=== PATIENT | female | born 1985 | race Caucasian/White ===

== ENCOUNTER 2016-03-18 18:15 | Emergency (ER) | payer OTHER ==
[~2016-03-18] VITALS: Ht 175.3 cm; Wt 64.5 kg
[~2016-03-18 18:15] MED LIST: DOCU-144; ONDA4TAB35; POLY17PO; RIZA10TA21 ODT; TOPI200T4
[2016-03-18 18:42] VITALS: Ht 175.3 cm; Wt 64.5 kg
[2016-03-18] MEDS ORDERED: SOD CHLORIDE 0.9% 1,000 ML IV STA (20:15)
[2016-03-18] MEDS ORDERED: METOCLOPRAMIDE 10 MG INJ IV STA (20:15)
[2016-03-18] MEDS ORDERED: KETOROLAC 30 MG INJ IV STA (20:15)
[2016-03-18] MEDS ORDERED: DIPHENHYDRAMINE 50 MG INJ IV ONE (20:30)
--- NOTE | 2016-03-18 21:32 | ERD ---
ER Documentation Chief Complaint Date/Time DATE: 03/18/16 TIME: 21:29 Chief Complaint headache since december, and neck pain x month; ear muffled; HPI This is a 30-year-old female presenting to the emergency department with a history of chronic migraines since 2006 presenting to the emergency room complaining of a migraine and neck pain since December. Patient states the pain is severe. Patient states that she does have two neurologist that she sees , her last appointment was on March 05 in which she was put on new medication however she does not know the name of the medication. The other medication the patient takes Topamax. Patient has not taken any other medications today. She admits to having photophobia and nausea. Patient also complains of left-sided neck pain, with muffled ear and pain in her left jaw. She denies any chest pain or shortness of breath ROS All systems reviewed and are negative except as per history of present illness. Medications Home Meds Active Scripts Ibuprofen* (Ibuprofen*) 600 Mg Tablet, 600 MG PO Q6H Y for PAIN, #30 TAB Prov:KYLE DELEON PA-C 03/18/16 Cyclobenzaprine Hcl* (Cyclobenzaprine Hcl*) 10 Mg Tablet, 10 MG PO Q8 Y for MUSCLE SPASMS, #10 TAB Prov:KYLE DELEON PA-C 03/18/16 Reported Medications Ondansetron Hcl* (Zofran* ODT) 4 mg -ODT Tab.disper, PRN 06/04/13 Topiramate* (Topiragen*) 200 Mg Tablet, QHS 06/04/13 Rizatriptan Benzoate (Rizatriptan Benzoate) 10 Mg Tablet, ODT 06/04/13 Polyethylene Glycol 3350 (LAXATIVE PEG 3350) 17 Gm Powd.pack, DAILY 06/04/13 Docusate Sodium* (Colace*) 100 Mg Capsule, DAILY 06/04/13 Allergies Allergies: Coded Allergies: iodine (Verified Allergy, Severe, "MY THROAT WILL CLOSE", 06/18/13) latex (Verified Allergy, Severe, 06/18/13) Penicillins (Verified Allergy, Mild, RASH, 06/18/13) PMhx/Soc History of Surgery: Yes (lower back, right leg) Anesthesia Reaction: No Hx Neurological Disorder: No Hx Respiratory Disorders: Yes (asthma) Hx Cardiac Disorders: No Hx Psychiatric Problems: No Hx Miscellaneous Medical Probl: No Hx Alcohol Use: No Hx Substance Use: No Hx Tobacco Use: No Smoking Status: Never smoker Physical Exam Vitals Vital Signs Date Time Temp Pulse Resp B/P Pulse Ox O2 Delivery O2 Flow Rate FiO2 03/18/16 18:42 97.7 96 18 123/67 100 Physical Exam GENERAL: well-developed/well-nourished, in no apparent distress, non-toxic appearing HENT: NC/AT, bilateral tympanic membrane is normal with good cone of light, nares patent, oropharynx clear without exudates Linea alba and tongue ridges were noted in oropharynx EYES: Conjunctiva normal, PERRLA, EOMI, no nystagmus noted NECK: Tender palpation of the left SCM and trapezius muscle .supple, no lymphadenopathy PULM: CTA bilaterally, no rales, rhonchi, or wheezing heard CV: Normal S1S2, RRR, good capillary refill GI: Soft, non-distended, normal bowel sounds, non-tender BACK: No midline tenderness, no masses, No CVAT EXT: No clubbing, cyanosis, or edema NEURO: Alert and orientated to person, place, and time. CN II-IIX intact. Gait and coordination were normal. Hand health care marketing specialist strength were equal and within normal limits SKIN: Intact, normal turgor PSYCH: Normal mood and mentation, patient denied SI Results 24 hrs Current Medications Medications (Trade) Dose Ordered Sig/Haile Route PRN Reason Start Time Stop Time Status Last Admin Dose Admin Sodium Chloride (NS) 1,000 ml @ 1,000 mls/hr Q1H STAT IV 03/18/16 20:15 03/18/16 21:14 DC 03/18/16 21:31 Metoclopramide HCl (Reglan) 10 mg ONCE STAT IV 03/18/16 20:15 03/18/16 20:17 DC 03/18/16 21:31 Ketorolac Tromethamine (Toradol) 30 mg ONCE STAT IV 03/18/16 20:15 03/18/16 20:17 DC 03/18/16 21:33 Diphenhydramine HCl (Benadryl) 50 mg ONCE ONCE IV 03/18/16 20:30 03/18/16 20:31 DC 03/18/16 21:31 Diazepam (Valium) 5 mg ONCE ONCE IV 03/18/16 22:00 03/18/16 22:01 DC 03/18/16 22:27 Ondansetron HCl (Zofran Inj) 4 mg ONCE STAT IV 03/18/16 22:11 03/18/16 22:13 DC 03/18/16 22:27 Procedures/MDM This is a 30-year-old female with history of chronic migraines presenting to the emergency department complaining of acute on chronic migraine, neck pain and muscle tear on and off since December. 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 I will low suspicion for ACS, vertebral fracture dislocation. Patient had a normal neurological exam IV access established, patient was given 1 L fluids, Benadryl 50 mg, Reglan 10 mg and Toradol 30 mg IV. I have reassessed patient and she still continued to have pain and nausea, complaining of a muscle spasm in her neck therefore 5 mg of Valium IV and Zofran 4mg. Patient did have improvement. I have discussed the patient that she is suitable to follow-up with her neurologist again tomorrow for further evaluation and management. I discussed to follow-up with the dentist and her primary care physician as well. I discussed return to the ER for any worsening signs or symptoms. Patient understands and agrees with plan. She is neurovascular intact. Prescription for ibuprofen and Flexeril was provided. Departure Diagnosis: Primary Impression: Neck pain Additional Impression: Headache Headache type: unspecified Headache chronicity pattern: chronic headache Intractability: intractable Qualified Code: R51 - Chronic intractable headache, unspecified headache type Condition: KYLE Busch PA-C Mar 18, 2016 21:32
[2016-03-18] MEDS ORDERED: DIAZEPAM 5 MG/ML SYG IV ONE (22:00)
[2016-03-18] MEDS ORDERED: ONDANSETRON 4 MG INJ IV STA (22:11)
--- NOTE | 2016-03-18 22:35 | RADRPT ---
PROCEDURE: XR Cervical Spine. CLINICAL INDICATION: Generalized cervical spine pain. TECHNIQUE: AP, lateral and odontoid views of the cervical spine were performed. The images were re viewed on a PACS workstation. COMPARISON: None. FINDINGS: Study limited for evaluation of C6-7 and C7-T1 intervals, and recommend swimmers view or CT examinat ion of the cervical spine for complete evaluation. Within the remaining cervical spine: The vertebral body alignment, height and osseous mineralizatio n are normal. The intervertebral disc spaces are well maintained. There are no abnormal calcifications. The prevertebral soft tissues are normal. No radiopaque foreign bodies are identified. There is no acute fracture or subluxation. IMPRESSION: 1. Study limited for evaluation of C6-7 and C7-T1 intervals, and recommend swimmers view or CT exam ination of the cervical spine for complete evaluation. 2. Otherwise, with in the partially visualized portions of the cervical spine there is no evident a cute fracture. RPTAT: [facility] Date Time Electronically viewed and signed by Physician Park on 03/18/2016 22:35 RS/
[2016-03-18] MEDS ORDERED: CYCL-319 PO (22:45)
[2016-03-18] MEDS ORDERED: IBUP-1542 PO (22:45)
[2016-03-18 23:18] VITALS: BP 120/70; PULSE 75; RESP 18; TEMP 97.7
== END 2016-03-18 23:18 | disposition home or self-care (01) ==
LOC: FTE 18:15
DX: M54.2 Cervicalgia (principal); R51 Headache; J45.909 Unspecified asthma, uncomplicated; R11.0 Nausea; Z91.040 Latex allergy status
CPT/HCPCS: 72040; 96374; 96375; J1200; J1885; J2405; J2765; J3360; J7030; Z7502

== ENCOUNTER 2016-09-30 19:16 | Emergency (ER) | payer OTHER ==
[~2016-09-30] VITALS: Ht 172.7 cm; Wt 57.5 kg
[~2016-09-30 19:16] MED LIST changes: +CYCL-319 PO; +IBUP-1542 PO
[2016-09-30 19:22] VITALS: Ht 172.7 cm; Wt 57.5 kg
[2016-09-30] MEDS ORDERED: KETOROLAC 30 MG INJ IM STA (21:41)
[2016-09-30] MEDS ORDERED: ONDANSETRON (ODT) 4 MG TAB ODT STA (22:00)
[2016-09-30] MEDS ORDERED: IBUP-1542 PO (22:40)
--- NOTE | 2016-09-30 22:46 | ERD ---
ER Documentation Chief Complaint Date/Time DATE: 09/30/16 TIME: 22:44 Chief Complaint Back pain With lumbar fusion x2 HPI 31-year-old female with history of migraines and lumbar fusion presents to the emergency department complaining of lumbar back pain for the past week. Patient states the pain is located around L4-L5 region. Patient states that the pain is 10 out of 10 and she has lost her bowels and bladder in the past couple days. Patient states that she is unable to ambulate. She states that she was seen at [facility] the ER and they told her that they cannot do an MRI because of insurance purposes. She denies fevers ROS All systems reviewed and are negative except as per history of present illness. Medications Home Meds Active Scripts Ibuprofen* (Motrin*) 600 Mg Tab, 600 MG PO Q6H Y for PAIN AND OR ELEVATED TEMP, #30 TAB Prov:KYLE DELEON PA-C 09/30/16 Ibuprofen* (Ibuprofen*) 600 Mg Tablet, 600 MG PO Q6H Y for PAIN, #30 TAB Prov:KYLE DELEON PA-C 03/18/16 Cyclobenzaprine Hcl* (Cyclobenzaprine Hcl*) 10 Mg Tablet, 10 MG PO Q8 Y for MUSCLE SPASMS, #10 TAB Prov:KYLE DELEON PA-C 03/18/16 Reported Medications Ondansetron Hcl* (Zofran* ODT) 4 mg -ODT Tab.disper, PRN 06/04/13 Topiramate* (Topiragen*) 200 Mg Tablet, QHS 06/04/13 Rizatriptan Benzoate (Rizatriptan Benzoate) 10 Mg Tablet, ODT 06/04/13 Polyethylene Glycol 3350 (LAXATIVE PEG 3350) 17 Gm Powd.pack, DAILY 06/04/13 Docusate Sodium* (Colace*) 100 Mg Capsule, DAILY 06/04/13 Allergies Allergies: Coded Allergies: iodine (Verified Allergy, Severe, "MY THROAT WILL CLOSE", 06/18/13) latex (Verified Allergy, Severe, 06/18/13) Penicillins (Verified Allergy, Mild, RASH, 06/18/13) PMhx/Soc History of Surgery: Yes (lower back, right leg) Anesthesia Reaction: No Hx Neurological Disorder: No Hx Respiratory Disorders: Yes (asthma) Hx Cardiac Disorders: No Hx Psychiatric Problems: No Hx Miscellaneous Medical Probl: No Hx Alcohol Use: No Hx Substance Use: No Hx Tobacco Use: No Smoking Status: Never smoker Physical Exam Vitals Vital Signs Date Time Temp Pulse Resp B/P Pulse Ox O2 Delivery O2 Flow Rate FiO2 09/30/16 19:22 98.3 120 24 136/81 99 Physical Exam GENERAL: WD/WN, in no apparent distress, non-toxic appearing HENT: NC/AT EYES: Conjunctiva normal NECK: Supple PULM: Normal labored breathing CV: Good capillary refill GI: Non-distended, no guarding BACK: no deformities noted, normal spinal curvature, TTP on lumbar region bilaterally, tender on lumbar spine midline, normal anal tone, patient was able to get up from wheelchair to the bed EXT: No clubbing, cyanosis, or edema NEURO: Moves on all fours, sensation intact, normal gait SKIN: intact PSYCH: Normal mood Results 24 hrs Current Medications Medications (Trade) Dose Ordered Sig/Haile Route PRN Reason Start Time Stop Time Status Last Admin Dose Admin Ketorolac Tromethamine (Toradol) 30 mg ONCE STAT IM 09/30/16 21:41 09/30/16 21:44 DC 09/30/16 21:59 Ondansetron HCl (Zofran Odt) 4 mg ONCE STAT ODT 09/30/16 22:00 09/30/16 22:01 DC 09/30/16 22:04 Procedures/MDM This is a 31-year-old female presenting to the emergency department complaining of lumbar back pain, numbness losing her bladder and bowel in the past couple days. On examination patient was tender in her spine, she was able to ambulate from the chair to the bed for me to perform a digital rectal exam. Patient did have normal anal tone. Based on presentation I have a lower suspicion on cauda equina syndrome however due to her history of bladder, bowel incontinence And MRI will be done. Radiologist: 1. Postoperative changes from anterior posterior lumbar discectomy and fusion at L4-5 and L5-S1 as discussed above. The hardware is intact. There is solid osseous fusion from L4-S1. 2. The remaining lumbar spine is normal in appearance. No significant narrowing of the lumbar thecal sac or evidence of compression of the cauda equina. No evidence of cauda equina syndrome which matches up with patient's examination. Patient is neurovascular intact and stable to be discharged home to follow-up with her primary care physician. Discussed return to the emergency department for any worsening signs or symptoms. Prescription for ibuprofen was provided. She understands and agrees with this plan Departure Diagnosis: Primary Impression: Back pain Condition: Stable Patient Instructions: Back Pain (Acute Or Chronic) Referrals: DOCTOR,NOT ON STAFF (PCP) Additional Instructions: FOLLOW UP WITH YOUR PRIMARY CARE PHYSICIAN TOMORROW.Return to this facility if you are not improving as expected. Return to this facility if you are not improving as expected. KYLE DELEON PA-C Sep 30, 2016 22:46
--- NOTE | 2016-09-30 23:23 | RADRPT ---
PROCEDURE: MRI Lumbar Spine without contrast. CLINICAL INDICATION: 31-year-old female with severe lumbar spine pain, suspected cauda equina. Pa tient with prior surgery. TECHNIQUE: An MRI of the lumbar spine was performed with multiple sequences in the sagittal and ax ial planes without contrast. Images reviewed on a high-resolution PACS system. COMPARISON: CT abdomen 06/04/2013. FINDINGS: There are postoperative changes from anterior and posterior lumbar discectomy and fusion at L4-5 and L5-S1. There are paired pedicle screws in the L4 and L5 vertebral bodies with associated paraspina l fusion rods. The hardware is intact. There are postoperative changes from anterior lumbar discec tamika and fusion at L4-5 end L5-S1, with solid osseous fusion at these levels. The remaining interve rtebral discs are preserved. The vertebral body heights are maintained. The marrow signal is withi n normal limits. The conus medullaris is visible at the L1 level and appears grossly normal. The lumbar nerve roots are normal in appearance. The paraspinal soft tissues are unremarkable. No signi ficant paraspinal soft tissue swelling. Partial visualization of the gallbladder demonstrates modera te distension, which may be related to gallbladder hydrops. L1-L2: The posterior margin of the disc is normal in appearance. No significant disc bulge or prot rusion is evident. The central canal and neural foramina are adequately patent. L2-L3: The posterior margin of the disc is normal in appearance. No significant disc bulge or prot rusion is evident. The central canal and neural foramina are adequately patent. L3-L4: The posterior margin of the disc is normal in appearance. No significant disc bulge or prot rusion is evident. The central canal and neural foramina are adequately patent. L4-L5: No residual disc material is seen. The thecal sac and lateral recesses are patent. There i s mild narrowing of both neural foramina. L5-S1: No residual disc material is seen. The thecal sac and lateral recesses are patent. There i s moderate narrowing of both neural foramina. IMPRESSION: 1. Postoperative changes from anterior posterior lumbar discectomy and fusion at L4-5 and L5-S1 as discussed above. The hardware is intact. There is solid osseous fusion from L4-S1. 2. The remaining lumbar spine is normal in appearance. No significant narrowing of the lumbar thec al sac or evidence of compression of the cauda equina. RPTAT: [facility] .Ramiro Velazquez MD, MD Date Time Electronically viewed and signed by .Ramiro Velazquez MD, MD on 09/30/2016 23:23 .S/
== END 2016-09-30 23:43 | disposition home or self-care (01) ==
LOC: FTE 19:16
DX: M54.5 Low back pain (principal); J45.909 Unspecified asthma, uncomplicated; Z91.040 Latex allergy status
CPT/HCPCS: 72148; 96372; J1885; Z7502; Z7610